=== PATIENT | male | born 1975 | race Caucasian/White ===

== ENCOUNTER 2021-06-12 19:13 | Emergency (ER) | payer OTHER ==
[~2021-06-12] VITALS: Ht 182.9 cm; Wt 117.9 kg
[2021-06-12 20:16] LABS: BASOPHIL 0.7 % (0-2); EOSINOPHIL 1.7 % (0-5); HCT 37.7 % (42.0-52.0); HGB 11.9 g/dl (13.2-18.0); LYMPHOCYTE 30.6 % (15-48); MCH 27.5 pg (25.0-31.0); MCHC 31.6 g/dL (32.0-36.0); MCV 87.1 fL (78.0-100.0); MONOCYTE 4.8 % (0-12); MPV 9.3 fL (6.0-9.5); NEUTROPHIL 61.8 % (41-80); NRBC 0; PLT 429 K/uL (150-400); RBC 4.33 M/uL (4.70-6.00); RDW 14.3 % (11.5-14.0); WBC 12.6 K/uL (4.0-10.5)
[2021-06-12 20:32] LABS: ALBUMIN 2.9 g/dL (3.4-5.0); BILIRUBIN - TOTAL 0.2 mg/dL (0.2-1.0); BUN/CREAT RATIO (CALC) 10.6 RATIO; CREATININE 0.94 mg/dL (0.67-1.17); GLOBULIN (CALCULATION) 6.2 g/dL; POTASSIUM 3.9 mmol/L (3.5-5.1); TOTAL PROTEIN 9.1 g/dL (6.4-8.2)
[2021-06-12 20:37] LABS: LACTIC ACID 1.2 mmol/L (0.4-1.9)
[2021-06-13] MEDS ORDERED: PERCOCET 5-3251 EACH PO ×2 (07:04→09:50)
[2021-06-13] MEDS ORDERED: ONDANSETRON ODT4 MG SL (07:04)
[2021-06-13] MEDS ORDERED: VIBRAMYCIN100 MG PO (07:04)
== END 2021-06-13 07:39 | disposition home or self-care (01) ==
LOC: FER 19:13
PROVIDERS: Physician Assistant
DX: M54.5 Low back pain (principal); T81.49XA Infection following a procedure, other surgical site, initial encounter; E11.621 Type 2 diabetes mellitus with foot ulcer; L97.519 Non-pressure chronic ulcer of other part of right foot with unspecified severity; I10 Essential (primary) hypertension; F17.200 Nicotine dependence, unspecified, uncomplicated; Z79.4 Long term (current) use of insulin
CPT/HCPCS: 36415; 72072; 72110; 72128; 72131; 73630; 80053; 83605; 85025; 86140; 87040; J0713; J1885; J2270; J2405; J3370; J7030; J7050